=== PATIENT | female | born 1950 | race Caucasian/White ===

== ENCOUNTER 2023-08-27 18:14 | Inpatient (IN) | payer MEDICARE, SELFPAY ==
[2023-08-27] VITALS (9 sets, daily range): BP systolic 120–168; BP diastolic 57–86; BMI 26.0; BMI 25.1
[2023-08-27 14:50] LABS: Glucose - Point of Care 135 mg/dl (70-99)
[2023-08-27 15:04] LABS: % Basophils 0.3 % (0-2); % Eosinophils 1.3 % (0-6); % Immature Granulocytes 0.4 % (0-0.5); % Lymphocytes 21.4 % (20.5-51.1); % Monocytes 4.6 % (1.7-9.3); Absolute Eosinophils 0.1 10^3/uL (0-0.7); Absolute Lymphocytes 2.2 10^3/uL (1.2-3.4); Absolute Monocytes 0.5 10^3/uL (0.1-0.6); Absolute Neutrophils 7.5 10^3/uL (1.4-6.5); Hemoglobin 13.5 g/dL (12.0-16.0); Mean Corp Hgb Conc. 35.5 g/dL (33.0-37.0); Mean Corpuscular Volume 92.9 fL (81.0-99.0); Mean Platelet Volume 11.1 fL (7.4-10.4); Nucleated Red Blood Cells % 0 %; Platelet Count 244 10^3/uL (130-400); Red Blood Cell Count 4.09 10^6/uL (4.20-5.40); White Blood Cell Count 10.5 10^3/uL (4.8-10.8)
[2023-08-27 15:19] LABS: ALT (SGPT) 97 U/L (0-35); AST (SGOT) 203 U/L (14-36); Albumin 4.5 g/dl (3.5-5.0); Alkaline Phosphatase 60 U/L (38-126); Blood Urea Nitrogen 29 mg/dl (7-17); Calcium 9.9 mg/dl (8.4-10.2); Carbon Dioxide 25 mmol/L (22-30); Chloride 105 mmol/L (98-107); Estimated Creatinine Clearance 28 ml/min; Glucose 178 mg/dl (70-99); Lipase 153 U/L (23-300); Potassium 4.9 mmol/L (3.5-5.1); Sodium 138 mmol/L (135-145); Total Bilirubin 1.4 mg/dl (0.2-1.3); Total Protein 6.6 g/dl (6.3-8.2); eGFR 37.03
[2023-08-27 15:30] LABS: Troponin I < 0.012 ng/ml
--- NOTE | 2023-08-27 15:59 | ED.GENMED ---
History of Present Illness
General
Chief Complaint: Heart Rate Problem
Source: patient, spouse, family (Daughter) and ambulance crew
Exam Limitations: none
Time Seen by Provider: 08/27/23 14:51
Nursing documentation reviewed up to this point in time: agreed with
Travel History
Have you had any contact with someone who has COVID-19?: No
Do you have any symptoms of coronavirus? Fever > 100 degrees, chills, cough, shortness of breath, sore throat, loss of taste or smell, muscle aches, or headache?: No
History of Present Illness
History of Present Illness:
72-year-old female with a past medical history of hypertension, hyperlipidemia who presents to the emergency department accompanied by her spouse; she presents from home via EMS for evaluation of abdominal pain with nausea, vomiting. Patient
reports that she had onset of symptoms just prior to arrival�she says she was driving to pick[place] pack[place] her tax returns and while she was driving she had rather abrupt onset of upper abdominal discomfort and nausea. She says she turned around and went
home when she got out of the car she began feeling increasingly nauseated and vomited in the driveway. She says she made her way inside and into the bathroom and had persistent vomiting for the next 30 minutes. called EMS. Per EMS report
on their arrival patient was vomiting in the toilet. They say that she was pale and diaphoretic and somewhat lethargic. Apparently when they checked her blood pressure her systolic blood pressure was in the 60s and she had a heart rate in the 40s
and 50s. They were unable to obtain IV access and so they placed a right pretibial intraosseous line after which patient's heart rate and blood pressure increased as did her mental status; they gave her about 250 cc of IV fluid and transported to
the hospital. Patient says that since she is arrived to the hospital her abdominal discomfort has improved she says she now has no pain. She has no nausea. She says she was in her normal state of health prior to onset of symptoms. She does admit
that she ate some leftover short ribs about an hour before symptoms started. She says she never had any chest pain. Never had any shortness of breath. She does say that on imaging in the past she was told that she incidentally has gallstones.
Review of Systems
Review of Systems
All Other Systems: ROS reviewed and negative except as documented in HPI and ROS
Constitutional: Denies fever or chills
EENT: Denies sore throat or runny nose
Respiratory: Denies cough or trouble breathing
Cardiac: Reports diaphoresis; Denies chest pain or palpitations
ABD/GI: Reports abdominal pain, nausea and vomiting; Denies diarrhea
: Denies flank pain
Musculoskeletal: Denies neck pain or back pain
Neurological: Reports dizzy; Denies headache, weakness or numbness
Phy Exam
Physical Exam
Physical Exam:
General: Awake, alert, oriented x3; somewhat anxious but no acute distress
Head: Normocephalic, atraumatic
Eyes: Conjunctiva normal, pupils equal round reactive to light bilaterally, EOMI, sclera anicteric
Throat: Airway intact, handling secretions
Neck: Trachea midline, supple without meningismus
Lungs: Clear to auscultation bilaterally, no wheezing, rales, rhonchi
Heart: Regular rate and rhythm, no murmurs, gallops, or rubs�heart rate 80s and 90s here
Abd: Soft, non distended, minimally tender upper abdomen
Neuro: Cranial nerves grossly intact, speech fluid, moving all extremities with no gross motor or sensory deficit
Skin: Slightly pale and moist, no rash
Extremities: No edema in extremities, equal pulses in all extremities
Scores
Heart Failure Risk
Heart Failure Risk Score: Not Applicable
Heart Score for Chest Pain Patients
STEMI patient?: Not applicable
Withdrawal Assessment of Alcohol
Withdrawal Assessment Completed?: Not applicable
Course
Orders/Labs/Results
Orders:
Orders
08/27/23
EKG [Electrocardiogram (*1)] Urgent
Reason for Study: Chest Pain
08/27/23 14:46
EKG- Treatment ONCE
08/27/23 14:49
CBC/With Diff [Complete Blood Count/With Diff] Urgent
CMP [Comprehensive Metabolic Panel] Urgent
Lipase Urgent
Troponin I Urgent
08/27/23 14:51
CR Chest Portable - 1 View Urgent
Comment:
Reason For Exam: epigastric pain
Reason Study Needs to be Portable: Unable to Transport
US Abdomen Complete/Upper Urgent
Comment:
Reason For Exam: abd pain, N/V
08/27/23 15:12
COVID-19 Antigen Urgent
Source: Nasal Swab
Influenza A+B Rapid Molecular Urgent
VADIM Source: Nasal Swab
Specimen Description:
08/27/23 16:09
0.9% Sodium Chloride 1000 ml [Nss] 1,000 ml IV BOLUS
08/27/23 16:27
GASTROINTESTINAL CONSULT Urgent
Consulting Provider: Pilo Montenegro
Was physician already notified: Yes
08/27/23 17:40
Troponin I Urgent
Abnormal Lab Results
08/27/23 08/27/23
14:45 14:49
RBC 4.09 L 10^6/uL
(4.20-5.40)
MCH 33.0 H pg
(27.0-31.0)
MPV 11.1 H fL
(7.4-10.4)
Absolute Neuts (auto) 7.5 H 10^3/uL
(1.4-6.5)
BUN 29 H mg/dl
(7-17)
Creatinine 1.5 H mg/dL
(0.6-1.0)
Glucose 178 H mg/dl
(70-99)
Total Bilirubin 1.4 H mg/dl
(0.2-1.3)
AST 203 H U/L
(14-36)
ALT 97 H U/L
(0-35)
POC Glucose 135 H mg/dl
(70-99)
08/27/23 14:49
08/27/23 14:49
Vital Signs
Initial and Last Documented VS:
Initial Vital Signs
Pulse Resp BP Pulse Ox
90 18 120/57 100
08/27/23 14:42 08/27/23 14:42 08/27/23 14:42 08/27/23 14:42
Last Documented Vital Signs
Temp Pulse Resp BP Pulse Ox
36.4 C 89 7 136/72 99
08/27/23 14:50 08/27/23 16:00 08/27/23 16:00 08/27/23 16:00 08/27/23 16:00
MDM/Problems Addressed
Differential Diagnosis Includes:
Cholecystitis, cholelithiasis, choledocholithiasis, gastritis, pancreatitis, ACS/acute OH
MDM/Problems Addressed:
72-year-old female presents for evaluation of epigastric pain associated with profuse nausea and vomiting. Started about an hour after eating with some left upper short ribs. She does have a known history of gallstones she says but has never had
pain from them before. EMS found her diaphoretic and lethargic, hypotensive and bradycardic. Vital signs quickly normalized after placement of pretibial IO and infusion of fluids. I suspect that this was likely vagal episode in the setting of her
pain and vomiting�fortunately she is normotensive here with a heart rate in the 80s and 90s. Her Accu-Chek on arrival is normal. Her EKG on arrival shows normal sinus rhythm with no acute ischemic changes. We established IV access labs sent off
including CBC and a CMP, lipase. Will check serial troponins on this patient. Will do viral swabs. Check a chest x-ray. Will send for an upper abdominal ultrasound. Will monitor closely on telemetry. Clinical picture seems more consistent with
symptomatic cholelithiasis and subsequent vagal episode. Reassess after the above.
Labs reviewed: CBC shows no clinically significant abnormalities, CMP shows PIPER with elevated creatinine at 1.5 from a baseline of less than 1. She has elevated T. bili to 1.4 and mild elevation of the transaminases. Lipase normal. Her initial
troponin is undetectable. Chest x-ray shows no acute disease. Awaiting results of abdominal ultrasound. Clinical reassessment patient's vital signs are stable, she remains asymptomatic.
Ultrasound initially reviewed by yo does appear to have have gallstones, no clear signs of cholecystitis without any obvious pericholecystic fluid or thickening of the gallbladder wall; CBD appears top normal for age at 0.71 cm. Given this with
abnormal transaminases will admit for further evaluation with concern for possible choledocholithiasis. Discussed with GI for consultation. I think she also should be monitored to ensure no recurrence of her bradycardia or hypotension although
again I suspect this was likely a vagal episode. Discussed with hospitalist for admission.
Chronic conditions affecting care:
Cholelithiasis�at risk for choledocholithiasis and symptomatic cholelithiasis
Hypertension, hyperlipidemia�at risk for CAD/ACS
Chronic conditions affecting care: HTN
*Radiology
Radiology exam reviewed: preliminary read by ED provider and radiology read reviewed
*Pulse Oximetry
Patient hypoxic: no
*EKG
Interpreted by ED Provider?: Yes
Comparison EKG: no comparison EKG present
Heart Rate: 83
Rate: normal
Rhythm: sinus
Fisher: normal axis
Interval: normal interval
QRS Pattern: normal QRS
Ischemia: no ischemia
*Critical Care Note
Total Time (30-74mins, 75-104mins- exclusive of procedures): Not Applicable
Data Reviewed
Review of Other/Old Records Reveals: Labs and Records
Source: patient, spouse, family (Daughter) and ambulance crew
Patient Management
Discussion with other providers: Hospitalist (Discussed with hospitalist) and [employer] (Discussed with GI)
Escalation/DeEscalation of care consider admission/obs:
Admission indicated
ED Attending Note
-
Portions of this chart may have been created with voice recognition software.� Occasional wrong word or��sound alike� substitutions may have occurred due to the inherent limitations of voice recognition software.
Discharge Plan
Departure
Patient Disposition: Admit
Date of Disposition: 08/27/23
Time of Disposition: 16:33
Admit to doctor: Berenice
Presentation/result/management discussed w/ accepting MD/DO: Hospitalist
Discharge Problem:
Cholelithiasis, Choledocholithiasis, Vaso vagal episode
Prescriptions:
No Action
amlodipine [Norvasc] 5 MG tablet
5 mg PO HS
telmisartan [Micardis] 80 MG tablet
80 mg PO DAILY
atorvastatin 10 mg Tablet
10 mg PO DAILY
Refresh Classic (PF) 1.4-0.6 % Dropperette
1 drp BOTH EYES BID
cholecalciferol (vitamin D3) 50 mcg (2,000 unit) Tablet
50 mcg PO DAILY
Referrals:
Yeimi Odonnell MD [Family Provider] -
Interventions
Interventions:
*Risk Screen - Suicide Last Done: 08/27/23 14:57
*General Assessment Last Done: 08/27/23 14:42
*Neglect/Abuse Screening Last Done: 08/27/23 14:57
*ED COVID-19 Vaccine History Last Done: 08/27/23 14:51
ED- Cardiac Assessment Last Done: 08/27/23 14:57
ED- Pulmonary Assessment Last Done: 08/27/23 14:57
[2023-08-27 16:18] LABS: COVID-19 Antigen Negative (Negative)
[2023-08-27] MEDS: NSS 1000 IV ×2 (16:52→19:20)
--- NOTE | 2023-08-27 17:24 | HPS.HSE ---
Addendum entered and electronically signed by Landon Royal MD 08/27/23 17:51:
72-year-old female admitted because of severe epigastric pain with nausea and vomiting. Patient describes as a squeezing type of pain. EMS was called and she was found to be hypotensive and started on IV fluids blood pressure was stable by the
time she arrived to the ER.
Denies any chest pain or shortness of breath and patient appears to be comfortable
Cardiovascular system S1-S2 appreciated
Chest clear to auscultation
Abdomen no right upper quadrant tenderness normal bowel sounds appreciated
No peripheral edema noted
# Abdominal pain-biliary colic
Admit
Clear liquids okay tonight
Check MRI/MRCP to rule out choledocholithiasis
No evidence of infection at present however if patient develops a fever will add antibiotics.
GI consultation requested
Acute kidney injury
Likely secondary to prerenal causes from volume depletion from vomiting
IV fluids
Hold telmisartan
# Essential hypertension
Hold Norvasc and telmisartan
# Hyperlipidemia-hold atorvastatin
# History of colon resection for diverticulitis- sigmoidectomy
# DVT prophylaxis-subcutaneous heparin
# Full code
Discussed with patient's and daughter at bedside
Original Note:
Family Physician
-
Family Physician: Yeimi Odonnell
Chief Complaint
-
Abdominal Pain, Nausea and Vomiting
History of Present Illness
Patient is a 72-year-old female past medical history of hypertension, hyperlipidemia who presents with abdominal pain, nausea and vomiting. Patient where she was getting out of the car when she developed acute onset of appendectomy gastric
abdominal pain, which she describes as a tight squeezing. Patient reports significant nausea and vomiting. Patient reports persistent vomiting for about 30 minutes. called EMS who noted patient to be hypotensive, which improved with IV
fluids by the time she arrived to the emergency department. Patient reports few similar episodes over the last several years but this was much more intense than any previous episodes. She denies fevers, sweats or chills.
Medical History
Past Medical History
Past Medical History: Reports Other
Additional Past Medical History:
Essential Hypertension
Hyperlipidemia
Past Surgical History: Reports Other
Additional Past Surgical History:
Left Salpingectomy
Sigmoidectomy
Social History
Tobacco: Non-smoker
Alcohol: Occasional (Small glass of wine most nights)
Family History
Family History: Not pertinent
Allergies / Home Medications
Allergies reflects when Allergies were last updated in [facility].
Home Medications with original date entered in [facility]
Allergy/Medication List:
Allergies
Allergy/AdvReac Type Severity Reaction Status Date / Time
erythromycin base Allergy Nausea / Verified 01/21/17 11:03
Vomiting
metronidazole [From Flagyl] Allergy Nausea / Verified 01/21/17 11:03
Vomiting,
Rash
quinapril Allergy Cough Verified 01/21/17 11:03
Home Medications
amlodipine 5 mg tablet (Norvasc) 5 mg PO HS Blood Pressure 01/19/17
telmisartan 80 mg tablet (Micardis) 80 mg PO DAILY Blood Pressure 01/19/17
atorvastatin 10 mg tablet 10 mg PO DAILY High Cholesterol 08/27/23
cholecalciferol (vitamin D3) 50 mcg (2,000 unit) tablet 50 mcg PO DAILY Supplement 08/27/23
polyvinyl alcohol-povidone (PF) 1.4 %-0.6 % eye drops in a dropperette (Refresh Classic (PF)) 1 drp BOTH EYES BID dry eyes 08/27/23
Review of Systems
-
A 12 point ROS was completed and negative except as noted: Yes
Constitutional: Denies Fever
Respiratory: Denies Cough or Trouble Breathing
Cardiac: Denies Chest Pain or Palpitations
Abdomen/GI: Reports See HPI
Physical Exam
Vital Signs
Vital Signs
Temp Pulse Resp BP Pulse Ox
97.6 F 89 7 136/72 99
08/27/23 14:50 08/27/23 16:00 08/27/23 16:00 08/27/23 16:00 08/27/23 16:00
Physical Exam
General: Comfortable and Conversant
HEENT: Anicteric and Moist mucous membranes
Respiratory: Clear and Non Labored Respirations
Cardiac: S1/S2 and Regular Rhythm
GI: Soft, Non Tender and Normal Bowel Sounds
Musculoskeletal: No Clubbing, No Cyanosis and No Edema
Skin: Warm and Dry
Neuro: Awake, Alert, Oriented and Nonfocal/grossly intact
Psych: Calm
Laboratory Results
-
08/27/23 14:49
08/27/23 14:49
Laboratory Results
Total Bilirubin 1.4 mg/dl (0.2-1.3) H 08/27/23 14:49
AST 203 U/L (14-36) H 08/27/23 14:49
ALT 97 U/L (0-35) H 08/27/23 14:49
Alkaline Phosphatase 60 U/L (38-126) 08/27/23 14:49
Troponin I < 0.012 ng/ml 08/27/23 14:49
Lipase 153 U/L (23-300) 08/27/23 14:49
Data Reviewed
-
Ultrasound: Report Reviewed by me
Lab Data: Labs Reviewed by me
Impression/Plan
-
Abdominal Pain with Nausea/Vomiting, suspect Biliary Colic vs Choledocholithiasis
-Consult GI
-Check MRI/MRCP
-Trend LFTs
-Allow clear liquids
-No evidence of infection therefore will hold on antibiotics - However if patient developed fever would start empiric Zosyn
Acute Kidney Injury, likely due to volume depletion
-Continue IVFs
-Hold telmisartan
-Recheck creatinine in AM
Essential Hypertension
-Hold amlodipine and telmisartan due to low BP noted by EMS
Hyperlipidemia
-Hold atorvastatin
DVT proph: SC Heparin
Code Status: Full Code
[2023-08-27 18:50] LABS: Troponin I < 0.012 ng/ml
--- NOTE | 2023-08-27 19:50 | PTCARENOTE ---
patient arrived to [facility] from ED. AAOx3, pleasant, oriented to room. Able to walk to BR on her own. VSS stable. Plan of care discussed, will cont to akbar.
[2023-08-28] MEDS: NSS 1000 IV (04:59)
[2023-08-28 06:52] LABS: Hematocrit 36.4 % (37.0-47.0); Hemoglobin 12.4 g/dL (12.0-16.0); Mean Corp Hgb Conc. 34.1 g/dL (33.0-37.0); Mean Corpuscular Hgb 32.8 pg (27.0-31.0); Mean Corpuscular Volume 96.3 fL (81.0-99.0); Mean Platelet Volume 11.8 fL (7.4-10.4); Platelet Count 195 10^3/uL (130-400); Red Blood Cell Count 3.78 10^6/uL (4.20-5.40); Red Cell Dist. Width 13.1 % (11.5-14.5); White Blood Cell Count 7.4 10^3/uL (4.8-10.8)
[2023-08-28 07:10] VITALS: BP 138/77
[2023-08-28 07:24] LABS: ALT (SGPT) 467 U/L (0-35); AST (SGOT) 459 U/L (14-36); Albumin 3.6 g/dl (3.5-5.0); Alkaline Phosphatase 74 U/L (38-126); Blood Urea Nitrogen 17 mg/dl (7-17); Calcium 8.4 mg/dl (8.4-10.2); Carbon Dioxide 21 mmol/L (22-30); Chloride 113 mmol/L (98-107); Estimated Creatinine Clearance 41 ml/min; Glucose 85 mg/dl (70-99); Sodium 139 mmol/L (135-145); Total Bilirubin 1.6 mg/dl (0.2-1.3); Total Protein 5.5 g/dl (6.3-8.2); eGFR > 60.00
--- NOTE | 2023-08-28 11:00 | W.PN.HOSP.TC ---
Today's Communication/Plan
-
Follow LFTs
GI evaluation
MRI/MRCP awaited
Restart antihypertensives
Stop IV fluids
Assessment / Plan
Assessment / Plan
Cardiovascular system S1-S2 appreciated
Chest clear to auscultation
Abdomen no right upper quadrant tenderness normal bowel sounds appreciated
# Abdominal pain-biliary colic
Clear liquids
Check MRI/MRCP to rule out choledocholithiasis
No evidence of infection at present however if patient develops a fever will add antibiotics.
GI consultation requested
LFTs slightly elevated today. Likely secondary to hypotension which the patient had yesterday-from vasovagal reasons.
#Acute kidney injury
Likely secondary to prerenal causes from volume depletion from vomiting and also hypotension resolved
Stop IV fluids
Restart telmisartan
# Essential hypertension
Restart Norvasc and telmisartan
# Hyperlipidemia-hold atorvastatin
# History of colon resection for diverticulitis- sigmoidectomy
# DVT prophylaxis-subcutaneous heparin
# Full code
D/w RN
Anticipated Discharge: Within 24 hours
Subjective/Interval History
-
Date of Service: August 28, 2023
Objective Data
-
Labs:
Laboratory Results
08/28/23
05:31
WBC 7.4
Hgb 12.4
Hct 36.4 L
Plt Count 195 D
Sodium 139
Potassium 4.0
Chloride 113 H
Carbon Dioxide 21 L
BUN 17
Creatinine 0.9
Glucose 85
Calcium 8.4 D
Total Bilirubin 1.6 H
AST 459 H
ALT 467 H
Alkaline Phosphatase 74
Vital Signs:
Vital Signs
Temp Pulse Resp BP Pulse Ox
98.3 F 92 18 138/77 95
08/28/23 07:10 08/28/23 07:10 08/28/23 07:10 08/28/23 07:10 08/28/23 07:10
I&O
08/27/23 08/28/23 08/29/23
06:59 06:59 06:59
Intake Total 1480 / 1480
Balance 1480 / 1480
--- NOTE | 2023-08-28 11:54 | CM ---
Reviewed the chart notes and spoke with the patient at the bedside. The patient resides with her spouse in a three story home with three steps to enter. The patient reports no DME/VN/SNF in the past. The patient confirmed her pharmacy of choice
is the [facility]. CM continues to be available to patient/family and is monitoring medical plan for needs at discharge.
Plan: Discharge to home with no anticipates needs being identified at this time.
--- NOTE | 2023-08-28 12:04 | CON.GI ---
Consultation
-
Date/Time Consultation Requested: 08/27/2022
Date/Time Consultation Performed: 08/28/2022
Performing Provider: Pilo Montenegro
Reason for Consultation: suspected choledocholithiasis, elevated LFT
Medical History
Chief Complaint / HPI
Chief Complaint: abdominal pain, suspected CBD stone
History of Present Illness:
Patient is a 72-year-old female with history of HTN and HPL who presents with abdominal pain, nausea, and vomiting. Her pain was located in right side of abdomen/epigastric region. She has similar episodes before although her pain was
significantly less severe. She denies symptoms consistent with biliary pain, although she does have 'indigestion symptoms' which occurs intermittently. Since presented to ER, her pain has subsided. No further vomiting.
Past Medical History
Past Medical History: HTN and Hypercholesterolemia
Past Surgical History: Other
Social History
Tobacco: Non-Smoker
Alcohol: None
Family History
Family History: Reviewed & Not Pertinent
Allergies / Home Medications
Allergy/AdvReac Type Severity Reaction Status Date / Time
erythromycin base Allergy Nausea / Verified 01/21/17 11:03
Vomiting
metronidazole [From Flagyl] Allergy Nausea / Verified 01/21/17 11:03
Vomiting,
Rash
quinapril Allergy Cough Verified 01/21/17 11:03
Medication Instructions Recorded
amlodipine 5 mg tablet (Norvasc) 5 mg PO HS Blood Pressure 01/19/17
telmisartan 80 mg tablet (Micardis) 80 mg PO DAILY Blood Pressure 01/19/17
atorvastatin 10 mg tablet 10 mg PO DAILY High Cholesterol 08/27/23
cholecalciferol (vitamin D3) 50 50 mcg PO DAILY Supplement 08/27/23
mcg (2,000 unit) tablet
polyvinyl alcohol-povidone (PF) 1 drp BOTH EYES BID dry eyes 08/27/23
1.4 %-0.6 % eye drops in a
dropperette (Refresh Classic (PF))
Review of Systems
Vital Signs
Temp Pulse Resp BP Pulse Ox
98.3 F 92 18 138/77 95
08/28/23 07:10 08/28/23 07:10 08/28/23 07:10 08/28/23 07:10 08/28/23 07:10
Physical Exam
Exam
General: Well Developed and Well Nourished
HEENT: Normocephalic and Anicteric
Respiratory: Clear
Cardiac: S1/S2
GI: Soft, Non Tender, Non Distended and Normal Bowel Sounds
Results
WBC 7.4 10^3/uL (4.8-10.8) 08/28/23 05:31
Hgb 12.4 g/dL (12.0-16.0) 08/28/23 05:31
Hct 36.4 % (37.0-47.0) L 08/28/23 05:31
MCV 96.3 fL (81.0-99.0) 08/28/23 05:31
Plt Count 195 10^3/uL (130-400) D 08/28/23 05:31
Absolute Neuts (auto) 7.5 10^3/uL (1.4-6.5) H 08/27/23 14:49
Sodium 139 mmol/L (135-145) 08/28/23 05:31
Potassium 4.0 mmol/L (3.5-5.1) 08/28/23 05:31
Chloride 113 mmol/L (98-107) H 08/28/23 05:31
Carbon Dioxide 21 mmol/L (22-30) L 08/28/23 05:31
BUN 17 mg/dl (7-17) 08/28/23 05:31
Creatinine 0.9 mg/dL (0.6-1.0) 08/28/23 05:31
Calcium 8.4 mg/dl (8.4-10.2) D 08/28/23 05:31
Total Bilirubin 1.6 mg/dl (0.2-1.3) H 08/28/23 05:31
AST 459 U/L (14-36) H 08/28/23 05:31
ALT 467 U/L (0-35) H 08/28/23 05:31
Alkaline Phosphatase 74 U/L (38-126) 08/28/23 05:31
Lipase 153 U/L (23-300) 08/27/23 14:49
Diagnostic Image Results:
Prior GI Procedures:
EGD:
Colonoscopy:
Assessment / Plan
-
Patient is a 72-year-old female with history of HTN and HPL who presents with abdominal pain, nausea, and vomiting. Her pain was located in right side of abdomen/epigastric region. Noted to have elevated LFT.
Impression / Rec:
1. Abdominal pain and elevated LFT - Patient presented with right-sided abdominal pain and associated nausea/vomiting. RUQ US showed large and small gallstones with mildly dilated CBD at 7 mm. Her LFT is slightly elevated with bili of 1.4 with
normal alk phos. There appears to be also transaminase elevations with AST and ALT in the 200s/100s, however this may be from her underlying nonalcoholic fatty liver disease as her previous labs also showed mild transaminase elevation. Bili is
also elevated 1.4 but unclear if this is direct or indirect. Given her abdominal pain with an elevated LFT, biliary dilation (7 mm), and presence of cholelithiasis, there is a intermediate suspicion that she may have underlying choledocholithiasis.
Recommended MRI/MRCP, which showed cholelithiasis and small 1.5 mm filling defect suspicious for choledocholithiasis. Will plan for EUS/ERCP on Wednesday. Will follow.
Total Time Spent with Patient (in minutes): 55
Data Reviewed
-
MRI: Image Personally Visualized and interpreted
-
-
Thank you for consultation and allowing me to participate in the patient's care. Please call the [employer] GI physician during the after hours with any questions or concerns.
[2023-08-28] MEDS: COZAAR 100 MG PO (14:35)
[2023-08-28] MEDS: REFRESH EYE DROPS (PF) 1 DROPS BOTH EYES ×2 (14:35→20:38)
[2023-08-28 15:10] VITALS: BP 158/84
[2023-08-28] MEDS: NORVASC 5 MG PO (22:13)
--- NOTE | 2023-08-28 22:41 | PTCARENOTE ---
previous IO site to R upper abraham, cleansed with saline and new foam drsg applied. site is scabbing over.
[2023-08-28 23:30] VITALS: BP 172/99
[2023-08-29 06:29] LABS: ALT (SGPT) 300 U/L (0-35); AST (SGOT) 139 U/L (14-36); Albumin 3.6 g/dl (3.5-5.0); Alkaline Phosphatase 68 U/L (38-126); Blood Urea Nitrogen 12 mg/dl (7-17); Calcium 8.6 mg/dl (8.4-10.2); Carbon Dioxide 25 mmol/L (22-30); Chloride 111 mmol/L (98-107); Estimated Creatinine Clearance 46 ml/min; Glucose 82 mg/dl (70-99); Sodium 138 mmol/L (135-145); Total Bilirubin 1.3 mg/dl (0.2-1.3); Total Protein 5.6 g/dl (6.3-8.2); eGFR > 60.00
[2023-08-29 07:05] VITALS: BP 146/81
[2023-08-29 07:30] LABS: Hepatitis C Antibody Negative (Negative)
[2023-08-29] MEDS: VITAMIN D3 (cholecalciferol) 2000 UNITS PO (08:47)
[2023-08-29] MEDS: COZAAR 100 MG PO (08:47)
[2023-08-29] MEDS: REFRESH EYE DROPS (PF) 1 DROPS BOTH EYES ×2 (08:47→20:29)
--- NOTE | 2023-08-29 09:58 | W.PN.HOSP.TC ---
Today's Communication/Plan
-
N.p.o. after midnight for ERCP
Assessment / Plan
Assessment / Plan
Cardiovascular system S1-S2 appreciated
Chest clear to auscultation
Abdomen no right upper quadrant tenderness normal bowel sounds appreciated
No pain
# Abdominal pain-biliary colic
Tolerating diet without any pain
Check MRI/MRCP to rule out choledocholithiasis
No evidence of infection at present however if patient develops a fever will add antibiotics.
GI following
LFTs are improving
#Acute kidney injury
Likely secondary to prerenal causes from volume depletion from vomiting and also hypotension resolved
# Essential hypertension
Continue Norvasc and telmisartan
# Hyperlipidemia-hold atorvastatin
# History of colon resection for diverticulitis- sigmoidectomy
# DVT prophylaxis-subcutaneous heparin
# Full code
D/w RN
Anticipated Discharge: 24 - 48 hours
Subjective/Interval History
-
Date of Service: August 29, 2023
Objective Data
-
Labs:
Laboratory Results
08/29/23
04:45
Sodium 138
Potassium 4.0
Chloride 111 H
Carbon Dioxide 25
BUN 12
Creatinine 0.8
Glucose 82
Calcium 8.6
Total Bilirubin 1.3
AST 139 H
ALT 300 H
Alkaline Phosphatase 68
Vital Signs:
Vital Signs
Temp Pulse Resp BP Pulse Ox
98.6 F 98 16 146/81 99
08/29/23 07:05 08/29/23 07:05 08/29/23 07:05 08/29/23 07:05 08/29/23 07:05
I&O
08/28/23 08/29/23 08/30/23
06:59 06:59 06:59
Intake Total 1480 / 1480 1560 / 1560
Balance 1480 / 1480 1560 / 1560
--- NOTE | 2023-08-29 11:15 | W.PN.GI.CBS2 ---
Today's Communication / Plan
-
eus/ercp tomorrow, should c/s surgery
Assessment / Plan
-
Patient is a 72-year-old female with history of HTN and HPL who presents with abdominal pain, nausea, and vomiting. Her pain was located in right side of abdomen/epigastric region. Noted to have elevated LFT.
Impression / Rec:
1. Abdominal pain and elevated LFT - Patient presented with right-sided abdominal pain and associated nausea/vomiting. RUQ US showed large and small gallstones with mildly dilated CBD at 7 mm. Her LFT is slightly elevated with bili of 1.4 with
normal alk phos. There appears to be also transaminase elevations with AST and ALT in the 200s/100s, however this may be from her underlying nonalcoholic fatty liver disease as her previous labs also showed mild transaminase elevation. Bili is
also elevated 1.4 but unclear if this is direct or indirect. Given her abdominal pain with an elevated LFT, biliary dilation (7 mm), and presence of cholelithiasis, there is a intermediate suspicion that she may have underlying choledocholithiasis.
Recommended MRI/MRCP, which showed cholelithiasis and small 1.5 mm filling defect suspicious for choledocholithiasis.
EUS +/- ERCP tomorrow. Also should have surgery on board given the likely symptomatic cholelithiasis.
Total Time Spent with Patient (in minutes): 35
Subjective
Subjective
Date of Service: August 29, 2023
Denies pain
Objective
Data Reviewed
Laboratory Data:
Laboratory Results
08/28/23 05:31
08/29/23 04:45
Laboratory Results
Magnesium 2.0 mg/dl (1.6-2.3) 08/29/23 04:45
Total Bilirubin 1.3 mg/dl (0.2-1.3) 08/29/23 04:45
AST 139 U/L (14-36) H 08/29/23 04:45
ALT 300 U/L (0-35) H 08/29/23 04:45
Alkaline Phosphatase 68 U/L (38-126) 08/29/23 04:45
Lipase 153 U/L (23-300) 08/27/23 14:49
Vital Signs and I&O:
Vital Signs
Temp Pulse Resp BP Pulse Ox
98.6 F 98 16 146/81 99
08/29/23 07:05 08/29/23 07:05 08/29/23 07:05 08/29/23 07:05 08/29/23 07:05
I&O
08/28/23 08/29/23 08/30/23
06:59 06:59 06:59
Intake Total 1480 / 1480 1560 / 1560
Balance 1480 / 1480 1560 / 1560
--- NOTE | 2023-08-29 14:27 | CM ---
Reviewed the chart notes and spoke with the patient and her spouse at the bedside. IMM signed and placed on chart. Patient to have eus/ercp tomorrow. CM continues to be available to patient/family and is monitoring medical plan for needs at
discharge.
Plan: Discharge to home when medically stable.
[2023-08-29 15:05] VITALS: BP 160/83
[2023-08-29 22:07] VITALS: BP 166/93
[2023-08-29] MEDS: NORVASC 5 MG PO (22:46)
[2023-08-30 06:40] LABS: Hematocrit 37.2 % (37.0-47.0); Hemoglobin 12.7 g/dL (12.0-16.0); Mean Corp Hgb Conc. 34.1 g/dL (33.0-37.0); Mean Corpuscular Hgb 32.8 pg (27.0-31.0); Mean Corpuscular Volume 96.1 fL (81.0-99.0); Mean Platelet Volume 11.8 fL (7.4-10.4); Platelet Count 212 10^3/uL (130-400); Red Blood Cell Count 3.87 10^6/uL (4.20-5.40); Red Cell Dist. Width 12.7 % (11.5-14.5); White Blood Cell Count 7.8 10^3/uL (4.8-10.8)
[2023-08-30 06:42] LABS: INR 0.94; PT 12.8 Sec (11.4-14.6)
[2023-08-30 07:15] VITALS: BP 126/83
[2023-08-30 07:16] LABS: ALT (SGPT) 214 U/L (0-35); AST (SGOT) 64 U/L (14-36); Albumin 3.9 g/dl (3.5-5.0); Alkaline Phosphatase 60 U/L (38-126); Blood Urea Nitrogen 15 mg/dl (7-17); Calcium 9.2 mg/dl (8.4-10.2); Carbon Dioxide 29 mmol/L (22-30); Chloride 107 mmol/L (98-107); Estimated Creatinine Clearance 37 ml/min; Glucose 87 mg/dl (70-99); Potassium 4.8 mmol/L (3.5-5.1); Sodium 139 mmol/L (135-145); eGFR > 60.00
[2023-08-30] MEDS: COZAAR 100 MG PO (09:08)
[2023-08-30] MEDS: REFRESH EYE DROPS (PF) 1 DROPS BOTH EYES ×2 (09:08→21:17)
[2023-08-30] MEDS: VITAMIN D3 (cholecalciferol) 2000 UNITS PO (09:09)
--- NOTE | 2023-08-30 09:55 | W.PN.HOSP.TC ---
Today's Communication/Plan
-
for ERCP today
Assessment / Plan
Assessment / Plan
Cardiovascular system S1-S2 appreciated
Chest clear to auscultation
Abdomen no right upper quadrant tenderness normal bowel sounds appreciated
MRI-Cholelithiasis.No MR evidence to suggest acute cholecystitis.Mild bile duct dilatation. Questionable tiny 1.5 mm distal choledocholithiasis.
# Abdominal pain-biliary colic
Tolerating diet without any pain
MRI/MRCP as above
No evidence of infection at present
GI following
LFTs are improving
# Acute kidney injury
Likely secondary to prerenal causes from volume depletion from vomiting and also hypotension resolved
# Essential hypertension
Continue Norvasc and telmisartan
# Hyperlipidemia-hold atorvastatin
# History of colon resection for diverticulitis- sigmoidectomy
# DVT prophylaxis-subcutaneous heparin
# Full code
Anticipated Discharge: Within 24 hours
Subjective/Interval History
-
Date of Service: August 30, 2023
Objective Data
-
Labs:
Laboratory Results
08/30/23
05:05
WBC 7.8
Hgb 12.7
Hct 37.2
Plt Count 212
PT 12.8
INR 0.94
Sodium 139
Potassium 4.8
Chloride 107
Carbon Dioxide 29
BUN 15
Creatinine 1.0
Glucose 87
Calcium 9.2
Total Bilirubin 1.0
AST 64 H
ALT 214 H
Alkaline Phosphatase 60
Vital Signs:
Vital Signs
Temp Pulse Resp BP Pulse Ox
98.3 F 99 18 126/83 95
08/30/23 07:15 08/30/23 07:15 08/30/23 07:15 08/30/23 07:15 08/30/23 07:15
I&O
08/29/23 08/30/23 08/31/23
06:59 06:59 06:59
Intake Total 1559 / 1559
Balance 1559
[2023-08-30 14:55] VITALS: BP 171/88
--- NOTE | 2023-08-30 16:48 | CM ---
Medical workup in progress. Follow medical progression for safe and appropriate discharge plan of care. Anticipate Home with no services at this time. Will follow should needs change.
[2023-08-30 18:10] VITALS: BP 160/99; BP_SYST 12
[2023-08-30 18:25] VITALS: BP 169/93; BP_SYST 12
[2023-08-30 18:40] VITALS: BP 173/91; BP_SYST 12
[2023-08-30] MEDS: NORVASC 5 MG PO (21:17)
[2023-08-30 23:10] VITALS: BP 141/81
[2023-08-31] VITALS (10 sets, daily range): BP systolic 141–176; BP diastolic 67–90
[2023-08-31] MEDS: REFRESH EYE DROPS (PF) 1 DROPS BOTH EYES ×2 (07:55→21:02)
[2023-08-31] MEDS: COZAAR 100 MG PO (07:55)
[2023-08-31] MEDS: VITAMIN D3 (cholecalciferol) 50 MCG PO (07:55)
[2023-08-31 09:56] LABS: ALT (SGPT) 153 U/L (0-35); AST (SGOT) 43 U/L (14-36); Albumin 4.2 g/dl (3.5-5.0); Alkaline Phosphatase 58 U/L (38-126); Blood Urea Nitrogen 29 mg/dl (7-17); Calcium 9.5 mg/dl (8.4-10.2); Carbon Dioxide 23 mmol/L (22-30); Chloride 109 mmol/L (98-107); Estimated Creatinine Clearance 34 ml/min; Glucose 114 mg/dl (70-99); Potassium 5.5 mmol/L (3.5-5.1); Sodium 139 mmol/L (135-145); Total Bilirubin 0.9 mg/dl (0.2-1.3); Total Protein 6.6 g/dl (6.3-8.2); eGFR 53.72
--- NOTE | 2023-08-31 10:17 | W.PN.HOSP.TC ---
Addendum entered and electronically signed by Landon Royal MD 08/31/23 10:27:
Await ERCP to complete before surgical consult obtained.,
Original Note:
Today's Communication/Plan
-
IVF
Lokelma after ERCP
Repeat BMP later- pls notify results
Surgery eval
Assessment / Plan
Assessment / Plan
Cardiovascular system S1-S2 appreciated
Chest clear to auscultation
Abdomen no right upper quadrant tenderness normal bowel sounds appreciated
MRI-Cholelithiasis.No MR evidence to suggest acute cholecystitis.Mild bile duct dilatation. Questionable tiny 1.5 mm distal choledocholithiasis.
# Abdominal pain-biliary colic
Tolerating diet without any pain
MRI/MRCP as above
EUS noted
No evidence of infection at present
GI following
LFTs are improving ERCP attempted yesterday. Inadvertently
Cannulated ventral pancreatic duct without any complications at stent was placed for identification today will reattempting an ERCP
Surgery eval
# Acute kidney injury
Likely secondary to prerenal causes from volume depletion from vomiting and also hypotension resolved
Creatinine -1.1 today
IV fluids
Repeat this afternoon
# Hypokalemia
Lokelma after ERCP
IV fluids and repeat BMP this afternoon
Hold telmisartan even though she already got a dose this morning.
# Essential hypertension
Continue Norvasc and hold telmisartan
# Hyperlipidemia-hold atorvastatin
# History of colon resection for diverticulitis- sigmoidectomy
# DVT prophylaxis-subcutaneous heparin
# Full code
Anticipated Discharge: 24 - 48 hours
Subjective/Interval History
-
Date of Service: August 31, 2023
Objective Data
-
Labs:
Laboratory Results
08/31/23
09:24
Sodium 139
Potassium 5.5 H
Chloride 109 H
Carbon Dioxide 23
BUN 29 H
Creatinine 1.1 H
Glucose 114 H
Calcium 9.5
Total Bilirubin 0.9
AST 43 H
ALT 153 H
Alkaline Phosphatase 58
Vital Signs:
Vital Signs
Temp Pulse Resp BP Pulse Ox
97.6 F 65 16 145/78 100
08/31/23 07:25 08/31/23 07:25 08/31/23 07:25 08/31/23 07:25 08/31/23 07:25
I&O
08/30/23 08/31/23 09/01/23
06:59 06:59 06:59
Intake Total 2039
Balance 2039
[2023-08-31] MEDS: LOKELMA 10 GRAM PO (11:23)
[2023-08-31] MEDS: NSS 1000 IV ×2 (11:40→20:47)
--- NOTE | 2023-08-31 11:57 | CM ---
CM following re: discharge planning.
Reviewed pt's chart, met with pt. Pt's and pt's bother at bedside.
Pt reports she anticipates no after care VN needs upon the discharge and pt feels she probably will be ready for discharge tomorrow. IMM reviewed, placed on chart, pt has a copy.
D.C plan: home with anticipated no needs. to transport at discharge.
CM will follow with discharge planning as hospitalization progresses
[2023-08-31 15:27] LABS: Blood Urea Nitrogen 35 mg/dl (7-17); Calcium 9.7 mg/dl (8.4-10.2); Carbon Dioxide 26 mmol/L (22-30); Chloride 108 mmol/L (98-107); Estimated Creatinine Clearance 29 ml/min; Glucose 104 mg/dl (70-99); Potassium 4.7 mmol/L (3.5-5.1); Sodium 140 mmol/L (135-145); eGFR 43.96
--- NOTE | 2023-08-31 15:30 | W.PN.GI.CBS2 ---
Addendum entered and electronically signed by Carissa Monge MD 08/31/23 18:04:
I saw and examined the patient.
The BREAD STACKER or PA's note was reviewed and I agree with the note.
Comment: For ERCP today
Original Note:
Today's Communication / Plan
-
for repeat ERCP later today
NPO
for surgical eval today '
hold heparin will add compression stocking
Assessment / Plan
-
Patient is a 72-year-old female with history of HTN and HPL who presents with abdominal pain, nausea, and vomiting. Her pain was located in right side of abdomen/epigastric region. Noted to have elevated LFT.
�08/30 EUS � - One stone was visualized endosonographically in the CBD, multiple stones on GB body, no pathology of smith head of body, no pathology in ampulla
08/30 ERCP - One plastic stent was placed into the ventral panc duct, failed biliary cannulation
Impression / Rec:
-choledocholithiasis
-abdominal pain
-increased LFT's
PLAN:
for repeat ERCP later today
NPO
for surgical eval today
Subjective
Subjective
Date of Service: August 31, 2023
no pain, feeling well without complaints, NPO
Objective
Data Reviewed
Laboratory Data:
Laboratory Results
08/30/23 05:05
08/31/23 15:02
Laboratory Results
PT 12.8 Sec (11.4-14.6) 08/30/23 05:05
INR 0.94 08/30/23 05:05
Magnesium 2.0 mg/dl (1.6-2.3) 08/29/23 04:45
Total Bilirubin 0.9 mg/dl (0.2-1.3) 08/31/23 09:24
AST 43 U/L (14-36) H 08/31/23 09:24
ALT 153 U/L (0-35) H 08/31/23 09:24
Alkaline Phosphatase 58 U/L (38-126) 08/31/23 09:24
Lipase 153 U/L (23-300) 08/27/23 14:49
Vital Signs and I&O:
Vital Signs
Temp Pulse Resp BP Pulse Ox
97.6 F 65 16 145/78 100
08/31/23 07:25 08/31/23 07:25 08/31/23 07:25 08/31/23 07:25 08/31/23 07:25
I&O
08/30/23 08/31/23 09/01/23
06:59 06:59 06:59
Intake Total 2039
Balance 2039
Physical Exam
Physical Exam
HEENT: Anicteric and Moist mucous membranes
Cardiology: Normal Sinus Rhythm
Pulmonary: Clear
GI: Soft, Non Distended and Non Tender
Extremities: No Edema
Neuro: Non Focal
--- NOTE | 2023-08-31 17:16 | CON.GS ---
Medical History
-
Chief Complaint: Epigastric abdominal pain
History of Present Illness:
Patient is a 72 yo F with a PMH of HTN, HLD, s/p salpingectomy, and s/p robotic sigmoidectomy by [facility] in 2017 who presents with severe epigastric abdominal pain. Ms. Cabezas states that her symptoms began on Wednesday. She describes an intense
squeezing and pressure sensation in her epigastrium. She describes intermittent episodes over the past several years (occurring on a once to twice a year basis). No clear association with fatty food intake. Current episode was severe enough to
prompt presentation to the ED. No fevers or chills. No nausea or vomiting. No jaundice, pale stools, or tea colored urine.
Past Medical History
Past Medical History: HTN and Hypercholesterolemia
Past Surgical History: Bowel Resection (RAL sigmoidectomy in 2017 by [facility]) and Gynecological (L salpingectomy)
Social History
Tobacco: Non-Smoker
Alcohol: Occasional
Drug: None
Family History
Family History: Other (Cholecystitis)
Allergies / Home Medications
Allergy/AdvReac Type Severity Reaction Status Date / Time
erythromycin base Allergy Nausea / Verified 01/21/17 11:03
Vomiting
metronidazole [From Flagyl] Allergy Nausea / Verified 01/21/17 11:03
Vomiting,
Rash
quinapril Allergy Cough Verified 01/21/17 11:03
Medication Instructions Recorded Confirmed Type
amlodipine 5 mg tablet (Norvasc) 5 mg PO HS Blood Pressure 01/19/17 08/27/23 History
telmisartan 80 mg tablet (Micardis) 80 mg PO DAILY Blood Pressure 01/19/17 08/27/23 History
atorvastatin 10 mg tablet 10 mg PO DAILY High Cholesterol 08/27/23 08/27/23 History
cholecalciferol (vitamin D3) 50 50 mcg PO DAILY Supplement 08/27/23 08/27/23 History
mcg (2,000 unit) tablet
polyvinyl alcohol-povidone (PF) 1 drp BOTH EYES BID dry eyes 08/27/23 08/27/23 History
1.4 %-0.6 % eye drops in a
dropperette (Refresh Classic (PF))
Review of Systems
-
A 10 point review of systems was completed, and was negative except as per HPI.
Physical Exam
Vital Signs
Temp Pulse Resp BP Pulse Ox
97.7 F 69 16 141/67 100
08/31/23 16:20 08/31/23 16:20 08/31/23 16:20 08/31/23 16:20 08/31/23 16:20
Body Mass Index (BMI) 25.1
Lab Results
08/30/23 05:05
08/31/23 15:02
WBC 7.8 10^3/uL (4.8-10.8) 08/30/23 05:05
Hgb 12.7 g/dL (12.0-16.0) 08/30/23 05:05
Hct 37.2 % (37.0-47.0) 08/30/23 05:05
Plt Count 212 10^3/uL (130-400) 08/30/23 05:05
Abs Immat Gran (auto) 0.0 10^3/uL (0-0.05) 08/27/23 14:49
Neutrophils % 72.0 % (42.2-75.2) 08/27/23 14:49
Physical Exam
General: Well Developed, Well Nourished and No Apparent Distress
HEENT: Normocephalic and Anicteric
Respiratory: Non Labored Respirations
Cardiac: Regular Rhythm
GI: Soft, Non Tender, Non Distended, Incisions (Well healed) and Other (Non-peritoneal)
Musculoskeletal: No Edema
Skin: Warm and Dry
Neuro: Nonfocal/Grossly Intact
Data Reviewed
-
Ultrasound: Image Personally Visualized and interpreted and Report Reviewed by me
MRI: Image Personally Visualized and interpreted and Report Reviewed by me
Labs: Labs Reviewed by me
Old Records: Reviewed
Assessment / Plan
-
Patient is a 72 yo F p/w choledocholithiasis
The natural history and pathophysiology of biliary and stone disease was briefly discussed. Anatomy was briefly reviewed. Workup thus far management was reviewed. The role of cholecystectomy in preventing further episodes of choledocholithiasis
or cholecystitis was discussed. GI consult noted. Plan for ERCP repeat today. Patient preference for cholecystectomy during this admission. Timing TBD based on success of ERCP and recovery. All questions answered.
-- Repeat ERCP today
-- Timing of laparoscopic cholecystectomy TBD
--- NOTE | 2023-08-31 20:04 | SUR.PHASEI ---
Rec'd sleepy in bed with HOB elevated low fowlers, IV infusing well, oriented x 3 by RN, no crepitus felt in chest upper abd, denies c/o positioned for comfort
--- NOTE | 2023-08-31 20:07 | SUR.PHASEI ---
Tangela mazariegos, Dr Montenegro in spoke with pt
--- NOTE | 2023-08-31 20:17 | SUR.PHASEI ---
Dozing arouses easily, no c/o at present
--- NOTE | 2023-08-31 20:31 | SUR.PHASEI ---
Arouses easily, c/o nausea, to medicate alcohol inhaled noemí well, reassured
[2023-08-31] MEDS: ZOFRAN 4 MG IV (20:34)
--- NOTE | 2023-08-31 21:15 | TRANSFER ---
Pt returned from PACU s/p ERCP - report received from KAYLIE Omer. Received pt in bed, drowsy, nauseous. C/o 02/08 pain to upper abdomen - pt stated NPO at this time as pt still nauseous. TT house provider. Assessment ongoing.
[2023-08-31] MEDS: TYLENOL 650 MG PO (21:53)
[2023-08-31] MEDS: NORVASC 5 MG PO (21:53)
[2023-08-31 22:48] LABS: Lipase > 4000 U/L (23-300)
--- NOTE | 2023-08-31 23:02 | PTCARENOTE ---
Notified house RN TEACHER of lipase results, awaiting orders.
--- NOTE | 2023-08-31 23:08 | W.PN.UPDATE ---
Update Note
Progress Note Update
Nursing reported patient with acute onset upper abdominal pain 02/08. Patient s/p ERCP today. Ordered STAT Lipase >4000. IV Fluids running and patient had relief with PRN Tylenol. Added PRN Morphine for severe pain. Labs added for morning.
[2023-09-01] VITALS (16 sets, daily range): BP systolic 138–176; BP diastolic 78–103
--- NOTE | 2023-09-01 02:38 | PTCARENOTE ---
Pt stated she felt much better after warm compresses to upper abdomen and PRN Tylenol. Pt was standby assist OOB to toilet. No acute distress noted at this time. Assessment ongoing.
[2023-09-01 06:24] LABS: Hematocrit 36.2 % (37.0-47.0); Hemoglobin 12.6 g/dL (12.0-16.0); Mean Corp Hgb Conc. 34.8 g/dL (33.0-37.0); Mean Corpuscular Hgb 32.4 pg (27.0-31.0); Mean Corpuscular Volume 93.1 fL (81.0-99.0); Mean Platelet Volume 11.5 fL (7.4-10.4); Platelet Count 251 10^3/uL (130-400); Red Blood Cell Count 3.89 10^6/uL (4.20-5.40); Red Cell Dist. Width 12.6 % (11.5-14.5)
[2023-09-01 06:47] LABS: ALT (SGPT) 281 U/L (0-35); AST (SGOT) 235 U/L (14-36); Albumin 3.7 g/dl (3.5-5.0); Alkaline Phosphatase 87 U/L (38-126); Blood Urea Nitrogen 31 mg/dl (7-17); Carbon Dioxide 20 mmol/L (22-30); Chloride 108 mmol/L (98-107); Direct Bilirubin 0.6 mg/dl (0.0-0.4); Estimated Creatinine Clearance 37 ml/min; Glucose 117 mg/dl (70-99); Potassium 4.2 mmol/L (3.5-5.1); Sodium 141 mmol/L (135-145); Total Protein 5.9 g/dl (6.3-8.2); Triglycerides 84 mg/dl (10-149); eGFR > 60.00
[2023-09-01 07:11] LABS: Lipase > 4000 U/L (23-300)
[2023-09-01 07:38] LABS: Amylase 5844 U/L (30-110)
[2023-09-01] MEDS: VITAMIN D3 (cholecalciferol) 50 MCG PO (07:50)
[2023-09-01] MEDS: REFRESH EYE DROPS (PF) 1 DROPS BOTH EYES ×2 (07:50→21:45)
[2023-09-01] MEDS: NSS 1000 IV ×3 (09:32→21:46)
--- NOTE | 2023-09-01 10:15 | W.PN.UPDATE ---
Update Note
Progress Note Update
Pt seen and evaluated. No complaints this am. Abd pain seems to have resolved. On exam there is no ttp. We discussed the prophylactic rationale for CCY in this setting. She would like to proceed today with CCY and I am in agreement. Risks, benefits,
com,plications and alternatives were discussed in detail including but not limited to pain, bleeding, infection, scarring, injury to intra-abdominal structures, need for further procedures, conversion to open procedures and the pt verbalized
understanding and agreed to proceed. Added onto OR schedule. Lap vs robo depending on equipment availabilty.
--- NOTE | 2023-09-01 11:02 | W.PN.HOSP.TC ---
Today's Communication/Plan
-
IVF
Assessment / Plan
Assessment / Plan
Cardiovascular system S1-S2 appreciated
Chest clear to auscultation
Abdomen no tenderness anywhere on palpation
MRI-Cholelithiasis.No MR evidence to suggest acute cholecystitis.Mild bile duct dilatation. Questionable tiny 1.5 mm distal choledocholithiasis.
Patient had abdominal pain last night which lasted for 4 hours went away with Tylenol. No pain since then whatsoever.
# Abdominal pain-biliary colic
Choledocholithiasis
EUS 08/31/23- noted without any acute changes other than gallstones and choledocholithiasis
First ERCP 08/31/23- inadvertently Cannulated ventral pancreatic duct without any complications at stent was placed for identification today will reattempting an ERCP
Second ERCP on 09/01/2023 -stent removed from pancreatic duct, pancreatic sphincterotomy performed.Biliary sphincterotomy performed and biliary tree swept and small stone fragments and debris were found
LFTs were trending down however elevation secondary to ERCP
Surgery eval requested
Discussed with surgery even though patient has elevated lipase and clinical exam at this point is not consistent with active pancreatitis therefore for cholecystectomy.
#Acute Pancreatitis-likely secondary procedure related
Chemical
Patient does not have any abdominal pain
Continue IV fluids
# Acute kidney injury
Likely secondary to prerenal causes from volume depletion from vomiting and also hypotension resolved
Creatinine -1 today
IV fluids to be continued with elevated lipase
# Hypokalemia
Resolved
# Essential hypertension
Continue Norvasc and restart ARB tomorrow
# Hyperlipidemia-hold atorvastatin
# History of colon resection for diverticulitis- sigmoidectomy
# DVT prophylaxis-subcutaneous heparin
# Full code
Discussed with patient's niece and patient's at bedside
Discussed with surgeon
Discussed with nursing
Anticipated Discharge: 24 - 48 hours
Subjective/Interval History
-
Date of Service: September 01, 2023
Objective Data
-
Labs:
Laboratory Results
09/01/23
05:48
WBC 9.0
Hgb 12.6
Hct 36.2 L
Plt Count 251
Sodium 141
Potassium 4.2
Chloride 108 H
Carbon Dioxide 20 L
BUN 31 H
Creatinine 1.0
Glucose 117 H
Calcium 9.0
Total Bilirubin 1.0
AST 235 H
ALT 281 H
Alkaline Phosphatase 87
Vital Signs:
Vital Signs
Temp Pulse Resp BP Pulse Ox
98.5 F 95 18 162/93 98
09/01/23 07:06 09/01/23 07:06 09/01/23 07:06 09/01/23 07:06 09/01/23 07:06
I&O
08/31/23 09/01/23 09/02/23
06:59 06:59 06:59
Intake Total 1170 / 1170
Balance 1170 / 1170
--- NOTE | 2023-09-01 11:20 | PTCARENOTE ---
Pt to OR in bed at this time
[2023-09-01] MEDS: CEFOTAN 2000 MG IV (12:21)
--- NOTE | 2023-09-01 13:04 | W.IMMPOSTOP ---
Surgical Immed Post Op Note
-
Primary Surgeon: Mackenzie
Assisting: Rk Cid
Pre-op Diagnosis: Choledocholithiasis
Post-op Diagnosis: Chronic cholecystitis
Procedure Performed: Robot assisted laparoscopic cholecystectomy
Anesthesia Type: GETA
Specimen / Cultures: Gallbladder
Estimated Blood Loss: 5cc
Complications: None immediate
Operative Findings: Gallbladder with chronic wall thickening and fibrosis, no significant adhesions
--- NOTE | 2023-09-01 13:05 | OR.RPT ---
Operative Report
Operative Report
Primary Surgeon: Mackenzie
Assisting: Chari JAIME, Rk JARAMILLO
Pre-op Diagnosis: Choledocholithiasis
Post-op Diagnosis: Chronic cholecystitis
Procedure Performed: Robot assisted laparoscopic cholecystectomy
Anesthesia Type: GETA
Specimen / Cultures: Gallbladder
Estimated Blood Loss: 5cc
Complications: None immediate
Operative Findings: Gallbladder with chronic wall thickening and fibrosis, no significant adhesions
Date of Surgery:� 09/01/23
Indications: This 72F developed choledocholithiasis. She uynderwent successful ERCP and developed post-procedure pancreatitis. This morning her pancreatitis was clinically resolved, her exam was totally without tenderness. Laparoscopic
cholecystectomy was elected.
Description of procedure: The patient was placed on the operating table in the supine position. General anesthesia was induced. A time-out was completed verifying correct patient, procedure, site, positioning, and special equipment prior to
beginning this procedure. An orogastric tube was placed. The abdomen was prepped and draped in the usual sterile fashion. A stab incision was made in left upper quadrant and the Veress needle was inserted. Proper position was confirmed by aspiration
and saline meniscus test. The abdomen was insufflated with carbon dioxide to a pressure of 12mmHg. The patient tolerated insufflation well.
A 8mm trocar was then inserted above the umbilicus. The laparoscope was inserted and the abdomen inspected. No injuries from initial trocar placement or Veress needle insertion were noted. Additional 8mm trocars were then inserted in the following
locations: two in the right lower quadrant and to the left of the umbilicus and just above. The abdomen was inspected and no abnormalities were found. The table was placed in the reverse Trendelenburg position with the right side up. The dome of the
gallbladder was grasped with an atraumatic grasper and retracted over the dome of the liver. The infundibulum was then grasped with an atraumatic grasper and retracted toward the right lower quadrant. This maneuver exposed Calot�s triangle. The
peritoneum overlying the gallbladder infundibulum was then incised and the cystic duct and cystic artery identified and circumferentially dissected so that a clear view of the liver was achieved through a window between the cystic duct an cystic
artery. At this time, the only two structures going into the gallbladder were the cystic artery and cystic duct. The common duct was identified with ICG and protected.
The cystic duct was then doubly clipped and divided. The cystic artery was controlled with bipolar and divided. The gallbladder was then dissected from its peritoneal attachments by electrocautery. Hemostasis was assured and the gallbladder was
removed using an endoscopic retrieval bag placed through the umbilical port. The gallbladder was passed off the table as a specimen. The gallbladder fossa was closely inspected and hemostasis was again assured. There was no evidence of bleeding from
the gallbladder fossa or cystic artery or leakage of the bile from the cystic duct stump. The umbilical trocar site was closed at the fascial level with 2-0 PDS. Secondary trocars were removed under direct vision and noted to be hemostatic. The
abdomen was allowed to collapse. The skin was closed with subcuticular sutures of 4-0 monocryl and topical skin adhesive. The orogastric tube was removed.
The patient tolerated the procedure well and was taken to the postanesthesia care unit in stable condition.
--- NOTE | 2023-09-01 13:12 | CM ---
Patient to OR today for Cholecystectomy. Will re-eval discharge needs post surgery and PT eval to determine post-surgical needs.
[2023-09-01] MEDS: ROXICODONE 5 MG PO (15:05)
--- NOTE | 2023-09-01 15:08 | PTCARENOTE ---
Pt returned from PACU in bed. 5 abdominal lap sites C/D/I dermabonded and CUSTOMER ACCOUNT COORDINATOR. IVF infusing per order. Pt OOB to the BR to urinate Ax1 via NSG staff. PRN oxycodone provided for c/o 5/10 abdominal pain. Bed locked and in the lowest position, safety
maintained. Oriented to room and call leung, family at bedside.
--- NOTE | 2023-09-01 17:11 | W.PN.GI.CBS2 ---
Addendum entered and electronically signed by Carissa Monge MD 09/01/23 18:52:
I saw and examined the patient.
The LAST INSERTER or PA's note was reviewed and I agree with the note.
Comment: Patient had been briefly overnight but doing well now.
Status post laparoscopic cholecystectomy. No more pain that she experienced last night.
Tolerating low-fat diet.
Will follow-up tomorrow including labs
Original Note:
Today's Communication / Plan
-
s/p repeat ERCP 08/31 with transient post procedure pain resolved by 1 AM and not recurrent may be inflammation vs post ERCP panc but pain remains improved
she proceeded with lap marya today and feels well
cont IVF overnight
diet per surgery
will reassess in AM
updated family at bedside discharge time pending clinical course of pain monitoring, diet tolerance etc.
Assessment / Plan
-
Patient is a 72-year-old female with history of HTN and HPL who presents with abdominal pain, nausea, and vomiting. Her pain was located in right side of abdomen/epigastric region. Noted to have elevated LFT and concern for choledocholithiasis
with tiny stone on MRI.
�08/30 EUS � - One stone was visualized endosonographically in the CBD, multiple stones on GB body, no pathology of smith head of body, no pathology in ampulla
08/30 ERCP - One plastic stent was placed into the ventral panc duct, failed biliary cannulation
08/31 ERCP - One visibly patent stent from the pancreatic duct in papilla, CBD dilated, stent removed in panc duct, pancreatic and biliary sphincterotomy was preformed biliary tree swept with small stone fragment
�09/01 s/p lap marya
Impression / Rec:
-choledocholithiasis s/p ERCP x 2 with stone removal
-08/31 post ERCP with bump in lipase that quickly resolved
-09/01 lap marya
-abdominal pain
-increased LFT's
PLAN:
s/p repeat ERCP 08/31 with transient post procedure pain resolved by 1 AM and not recurrent may be inflammation vs post ERCP panc but pain remains improved
she proceeded with lap marya today and feels well
cont IVF overnight
diet per surgery
will reassess in AM
updated family at bedside discharge time pending clinical course of pain monitoring, diet tolerance etc.
Subjective
Subjective
Date of Service: September 01, 2023
feeling better minimal pain, advancing diet
Objective
Data Reviewed
Laboratory Data:
Laboratory Results
09/01/23 05:48
09/01/23 05:48
Laboratory Results
PT 12.8 Sec (11.4-14.6) 08/30/23 05:05
INR 0.94 08/30/23 05:05
Magnesium 2.0 mg/dl (1.6-2.3) 08/29/23 04:45
Total Bilirubin 1.0 mg/dl (0.2-1.3) 09/01/23 05:48
AST 235 U/L (14-36) H 09/01/23 05:48
ALT 281 U/L (0-35) H 09/01/23 05:48
Alkaline Phosphatase 87 U/L (38-126) 09/01/23 05:48
Amylase 5844 U/L (30-110) H* 09/01/23 05:48
Lipase > 4000 U/L (23-300) H* 09/01/23 05:48
Vital Signs and I&O:
Vital Signs
Temp Pulse Resp BP Pulse Ox
97.7 F 85 14 153/83 96
09/01/23 17:03 09/01/23 17:03 09/01/23 17:03 09/01/23 17:03 09/01/23 17:03
I&O
08/31/23 09/01/23 09/02/23
06:59 06:59 06:59
Intake Total 1170 / 1170 100 / 100
Balance 1170 / 117 /
Physical Exam
Physical Exam
HEENT: Anicteric and Moist mucous membranes
Cardiology: Normal Sinus Rhythm
Pulmonary: Clear
GI: Soft, Non Distended, Tender (minimal tenderness around surgical sites no severe abdominal pain) and Other (post -op incisions intact)
Extremities: No Edema
Neuro: Non Focal
[2023-09-01] MEDS: TYLENOL 650 MG PO (21:44)
[2023-09-01] MEDS: NORVASC 5 MG PO (21:44)
[2023-09-02] MEDS: NSS 1000 IV ×2 (02:51→07:44)
[2023-09-02 03:25] VITALS: BP 162/87
[2023-09-02] MEDS: TYLENOL 650 MG PO ×2 (04:20→09:16)
[2023-09-02 06:33] LABS: Hematocrit 33.9 % (37.0-47.0); Hemoglobin 11.7 g/dL (12.0-16.0); Mean Corp Hgb Conc. 34.5 g/dL (33.0-37.0); Mean Corpuscular Hgb 32.2 pg (27.0-31.0); Mean Corpuscular Volume 93.4 fL (81.0-99.0); Mean Platelet Volume 11.4 fL (7.4-10.4); Platelet Count 194 10^3/uL (130-400); Red Blood Cell Count 3.63 10^6/uL (4.20-5.40); White Blood Cell Count 9.8 10^3/uL (4.8-10.8)
[2023-09-02 07:02] LABS: ALT (SGPT) 206 U/L (0-35); AST (SGOT) 128 U/L (14-36); Albumin 3.3 g/dl (3.5-5.0); Alkaline Phosphatase 76 U/L (38-126); Blood Urea Nitrogen 12 mg/dl (7-17); Calcium 7.9 mg/dl (8.4-10.2); Carbon Dioxide 23 mmol/L (22-30); Chloride 113 mmol/L (98-107); Estimated Creatinine Clearance 46 ml/min; Glucose 95 mg/dl (70-99); Potassium 3.9 mmol/L (3.5-5.1); Sodium 139 mmol/L (135-145); Total Bilirubin 0.8 mg/dl (0.2-1.3); Total Protein 5.4 g/dl (6.3-8.2); eGFR > 60.00
[2023-09-02 07:15] VITALS: BP 168/101
[2023-09-02 07:15] LABS: Lipase 2866 U/L (23-300)
[2023-09-02] MEDS: VITAMIN D3 (cholecalciferol) 50 MCG PO (07:43)
[2023-09-02] MEDS: COZAAR 100 MG PO (07:43)
[2023-09-02] MEDS: REFRESH EYE DROPS (PF) 1 DROPS BOTH EYES (07:43)
[2023-09-02 11:05] VITALS: BP 167/88
--- NOTE | 2023-09-02 11:21 | W.PN.HOSP.TC ---
Today's Communication/Plan
-
Discharge
Assessment / Plan
Assessment / Plan
Cardiovascular system S1-S2 appreciated
Chest clear to auscultation
Abdomen Lap wounds stable.
MRI-Cholelithiasis.No MR evidence to suggest acute cholecystitis.Mild bile duct dilatation. Questionable tiny 1.5 mm distal choledocholithiasis.
Patient had abdominal pain last night which lasted for 4 hours went away with Tylenol. No pain since then whatsoever.
# Abdominal pain-biliary colic
Choledocholithiasis
EUS 08/31/23- noted without any acute changes other than gallstones and choledocholithiasis
First ERCP 08/31/23- inadvertently Cannulated ventral pancreatic duct without any complications at stent was placed for identification today will reattempting an ERCP
Second ERCP on 09/01/2023 -stent removed from pancreatic duct, pancreatic sphincterotomy performed.Biliary sphincterotomy performed and biliary tree swept and small stone fragments and debris were found
LFTs were trending down - elevation secondary to ERCP
Status post laparoscopic cholecystectomy 09/01/2023
Patient doing well. Mild discomfort only. No pain similar to the pain she had certified orthotist of 09/01/2023.
#Acute Pancreatitis-likely secondary procedure related
Chemical
Patient does not have any abdominal pain
We can stop IV fluids
AP standing down
# Acute kidney injury
Likely secondary to prerenal causes from volume depletion from vomiting and also hypotension resolved
Creatinine -0.8
# Hypokalemia
Resolved
# Essential hypertension
Continue Norvasc and restart ARB tomorrow
# Hyperlipidemia-hold atorvastatin
# History of colon resection for diverticulitis- sigmoidectomy
# DVT prophylaxis-subcutaneous heparin
# Full code
Discussed with surgeon yesterday-patient was okay to be discharged as of yesterday. Patient did not feel comfortable going home yesterday.
Doing much better and also labs are better today.
Discussed with GI
Discussed with nursing
Follow-up care discussed with the patient. All questions answered. Oxycodone and Tylenol discussed.
discharge time 31 min
Anticipated Discharge: Today
Subjective/Interval History
-
Date of Service: September 02, 2023
Objective Data
-
Labs:
Laboratory Results
09/02/23
06:06
WBC 9.8
Hgb 11.7 L
Hct 33.9 L
Plt Count 194 D
Sodium 139
Potassium 3.9
Chloride 113 H
Carbon Dioxide 23
BUN 12
Creatinine 0.8
Glucose 95
Calcium 7.9 L
Total Bilirubin 0.8
AST 128 H
ALT 206 H
Alkaline Phosphatase 76
Vital Signs:
Vital Signs
Temp Pulse Resp BP Pulse Ox
98.5 F 104 18 168/101 97
09/02/23 07:15 09/02/23 07:43 09/02/23 07:15 09/02/23 07:43 09/02/23 07:15
I&O
09/01/23 09/02/23 09/03/23
06:59 06:59 06:59
Intake Total 1170 / 1170 4220 / 4220
Balance 1170 / 1170 4220 / 4220
--- NOTE | 2023-09-02 11:24 | W.DS.TRANS ---
Addendum entered and electronically signed by Landon Royal MD 09/02/23 16:30:
Dictation- [id number]
Original Note:
DC Summary - Printer Assistant
-
Discharge Instructions:
Discharge Diagnosis/Procedures Biliary colic, Choledocholthiasis status post
ERCP, cholecystectomy, pancreatitis following
the procedure, acute kidney injury-resolved,
hypertension, high cholesterol, diverticulosis,
low potassium
Diet Low Fat
Activity No strenuous activity
Driving Restrictions No driving for 24 hours
Bathing Restrictions OK to Shower
Blood Work lft 1 week, lipase 1 week (Script Given)
Wound Care Allow skin glue to flake off on its own.
Instructions: Cholecystectomy (DC)
Stand-Alone Forms:
Changes to Home Medications: Yes
Discharge Medications:
DC Medications w/original date entered in [employer]
amlodipine 5 mg tablet (Norvasc) 5 mg PO HS Blood Pressure 01/19/17
telmisartan 80 mg tablet (Micardis) 80 mg PO DAILY Blood Pressure 01/19/17
atorvastatin 10 mg tablet 10 mg PO DAILY High Cholesterol 08/27/23
cholecalciferol (vitamin D3) 50 mcg (2,000 unit) tablet 50 mcg PO DAILY Supplement 08/27/23
polyvinyl alcohol-povidone (PF) 1.4 %-0.6 % eye drops in a dropperette (Refresh Classic (PF)) 1 drp BOTH EYES BID dry eyes 08/27/23
oxycodone 5 mg tablet 5 - 10 mg PO Q4HPRN PRN moderate to severe pain #15 tabs 09/01/23
Home Medication Changes
Oxycodone as
Atorvastatin held for 1 week
Pending Results: Yes
Additional Pending Results:
path
[2023-09-02] MEDS: NSS IV (11:58)
--- NOTE | 2023-09-02 12:40 | W.PN.SURGUPD ---
Surgical Update
Surgical Update
Patient seen in follow-up. Family at bedside.
Tolerating diet advancement.
Mild incisional discomfort no significant abdominal pain. No nausea or vomiting.
AFVSS
ABD: Soft, nondistended, minimal tenderness at incision sites. Incision with surgical glue dressings some localized ecchymosis but no hematomas. No drainage.
A/P: POD #1 status post RAL cholecystectomy
Stable for discharge from surgical standpoint.
Postoperative surgical discharge instructions reviewed
Follow-up with Dr. Mann
--- NOTE | 2023-09-02 13:43 | CM ---
Patient has been medically cleared for discharge to home with no additional skilled services. Family transported home.
== END 2023-09-02 14:16 | disposition home or self-care (01) | DRG 417 ==
LOC: 2 SOUTH 18:14
PROVIDERS: Nurse Practitioner Adult Health; Nurse Practitioner Family; Physician Assistant Medical; Surgery; ADMITTING PHYSICIAN Hospitalist; CONSULT PHYSICIAN Internal Medicine Gastroenterology; EMERGENCY PHYSICIAN Emergency Medicine; FAMILY PHYSICIAN Internal Medicine; OTHER PHYSICIAN Surgery
PROC: 0F7D8DZ Dilation of Pancreatic Duct with Intraluminal Device, Via Natural or Artificial Opening Endoscopic (ICD-10-PCS; 2023-08-30)
PROC: 0DJ08ZZ Inspection of Upper Intestinal Tract, Via Natural or Artificial Opening Endoscopic (ICD-10-PCS; 2023-08-30)
PROC: 0F798ZZ Dilation of Common Bile Duct, Via Natural or Artificial Opening Endoscopic (ICD-10-PCS; 2023-08-31)
PROC: 0FPD8DZ Removal of Intraluminal Device from Pancreatic Duct, Via Natural or Artificial Opening Endoscopic (ICD-10-PCS; 2023-08-31)
PROC: 0FT44ZZ Resection of Gallbladder, Percutaneous Endoscopic Approach (ICD-10-PCS; 2023-09-01)
DX: K80.64 Calculus of gallbladder and bile duct with chronic cholecystitis without obstruction (principal); K85.90 Acute pancreatitis without necrosis or infection, unspecified; N17.9 Acute kidney failure, unspecified; I10 Essential (primary) hypertension; E78.00 Pure hypercholesterolemia, unspecified; E87.6 Hypokalemia; K80.50 Calculus of bile duct without cholangitis or cholecystitis without obstruction; K57.90 Diverticulosis of intestine, part unspecified, without perforation or abscess without bleeding; Z11.52 Encounter for screening for COVID-19
CPT/HCPCS: 88304; 71045; 74183; 74330; 76000; 76700; 80048; 80053; 82150; 82248; 82962; 83690; 83735; 84478; 84484; 85025; 85027; 85610; 86140; 86803; 87502; 87811; 93005; 96360; 99285; A9575; C1769; C2617

== ENCOUNTER → 2024-06-14 12:41 | Outpatient (REF) | payer MEDICARE, SELFPAY | LOC: HWWDC 12:41 | PROVIDERS: ATTENDING PHYSICIAN Internal Medicine | DX: Z12.31 Encounter for screening mammogram for malignant neoplasm of breast (principal) | CPT/HCPCS: 77063; 77067 ==

== ENCOUNTER → 2025-02-06 07:45 | Outpatient (REF) | payer MEDICARE, SELFPAY | LOC: HWRAD 07:45 | PROVIDERS: ATTENDING PHYSICIAN Physician Assistant; FAMILY PHYSICIAN Internal Medicine | DX: M81.0 Age-related osteoporosis without current pathological fracture (principal) | CPT/HCPCS: 77080 ==